=== PATIENT | female | born 1955 | race Caucasian/White ===

== ENCOUNTER → 2019-10-22 15:02 | Outpatient (CLI) | payer MEDICARE, OTHER, SELFPAY ==
--- NOTE | ~2019-10-22 | MM_ITS ---
EXAMINATION: MM screening [facility] BI [facility] HISTORY: Screening mammogram TECHNIQUE: Craniocaudal and mediolateral oblique 3-D tomosynthesis images were obtained and synthetic 2-D images were generated. CAD analysis was submitted and interpreted. COMPARISON: 06/03/2018, 04/02/2016, 11/11/2013, 11/04/2013 BREAST PARENCHYMAL COMPOSITION: There are scattered areas of fibroglandular density. FINDINGS: A stable mass in the middle third of the central left breast is consistent with a benign fi nding given the lack of interval change. There is no evidence of suspicious mass, calcification, or a rchitectural distortion to suggest malignancy in either breast. There has been no suspicious interval change. IMPRESSION: 1. No mammographic evidence of malignancy. 2. Recommend routine screening mammography in one year. BI-RADS Category 2: Benign finding(s). Reviewed, dictated and finalized at location A. [employer]
== END ==
DX: Z12.31 Encounter for screening mammogram for malignant neoplasm of breast (principal)
CPT/HCPCS: 77063; 77067